=== PATIENT | male | born 1970 | race Caucasian/White ===

== ENCOUNTER 2016-07-28 15:03 | Emergency (ER) | payer OTHER ==
[~2016-07-28] VITALS: Ht 182.9 cm; Wt 86.0 kg
[2016-07-28 15:05] VITALS: BP 115/112; PULSE 88; RESP 14; TEMP 97.7; O2SAT 99
--- NOTE | 2016-07-28 15:42 | PD ---
HPI Chief Complaint: Pain: Acute or Chronic Time Seen by Provider: 15:35 Travel History International Travel<30 days: No Contact w/Intl Traveler<30days: No Traveled to known affect area: No History of Present Illness HPI 45-year-old male presents for evaluation of left calf pain. He reports that he had a little bit of pain in his left calf 5 days ago but went away. He reports that yesterday he drove here from [facility] and last night developed pain in the left calf again. The pain is a cramping pain which is constant but worse with movement or palpation. Denies chest pain or shortness of breath. He reports a history of gout. He has no other complaints. FOR[facility]LY [facility] Past Medical History Gout: Yes Social History Alcohol Use: Yes Tobacco Use: No Substance Use: No Allergies-Medications (Allergen,Severity, Reaction): Coded Allergies: No Known Allergies (Unverified , 07/28/16) Reported Meds & Prescriptions Reported Meds & Active Scripts Active Reported Colchicine 0.6 Mg Cap 0.6 Mg PO DAILY Probenecid 500 Mg Tab 500 Mg PO DAILY Ranitidine (Ranitidine HCl) 300 Mg Tab 300 Mg PO HS Omeprazole 20 Mg Tab 20 Mg PO DAILY Review of Systems Except as stated in HPI: all other systems reviewed are Neg Physical Exam Narrative GENERAL: Well-developed well-nourished male in no acute distress SKIN: Warm and dry. HEAD: Atraumatic. Normocephalic. EYES: Pupils equal and round. No scleral icterus. No injection or drainage. ENT: No nasal bleeding or discharge. Mucous membranes pink and moist. NECK: Trachea midline. No JVD. CARDIOVASCULAR: Regular rate and rhythm. No murmur appreciated. RESPIRATORY: No accessory muscle use. Clear to auscultation. Breath sounds equal bilaterally. GASTROINTESTINAL: Abdomen soft, non-tender, nondistended. MUSCULOSKELETAL: No obvious deformities. Tender to palpation left calf musculature. There is no lower extremity edema. 2+ dorsalis pedis and posterior tibial pulses. NEUROLOGICAL: Awake and alert. No obvious cranial nerve deficits. Motor grossly within normal limits. Normal speech. Data Data Last Documented VS Vital Signs Date Time Temp Pulse Resp B/P Pulse Ox O2 Delivery O2 Flow Rate FiO2 07/28/16 15:05 97.7 88 14 115/112 99 Room Air Orders Complete Blood Count With Diff (07/28/16 15:45) Basic Metabolic Panel (Bmp) (07/28/16 15:45) Us Leg Venous Doppler (07/28/16 15:45) Ketorolac Inj (Toradol Inj) (07/28/16 15:45) Tibia/Fibula (Ap/Lat) (07/28/16 ) Labs Laboratory Tests Test 07/28/16 16:00 White Blood Count 9.7 TH/MM3 Red Blood Count 4.70 MIL/MM3 Hemoglobin 14.3 GM/DL Hematocrit 41.1 % Mean Corpuscular Volume 87.3 FL Mean Corpuscular Hemoglobin 30.5 PG Mean Corpuscular Hemoglobin 34.9 % Concent Red Cell Distribution Width 13.6 % Platelet Count 236 TH/MM3 Mean Platelet Volume 8.5 FL Neutrophils (%) (Auto) 71.3 % Lymphocytes (%) (Auto) 17.8 % Monocytes (%) (Auto) 8.7 % Eosinophils (%) (Auto) 1.4 % Basophils (%) (Auto) 0.8 % Neutrophils # (Auto) 6.9 TH/MM3 Lymphocytes # (Auto) 1.7 TH/MM3 Monocytes # (Auto) 0.8 TH/MM3 Eosinophils # (Auto) 0.1 TH/MM3 Basophils # (Auto) 0.1 TH/MM3 CBC Comment DIFF FINAL Differential Comment Sodium Level 137 MEQ/L Potassium Level 3.7 MEQ/L Chloride Level 99 MEQ/L Carbon Dioxide Level 26.9 MEQ/L Anion Gap 11 MEQ/L Blood Urea Nitrogen 10 MG/DL Creatinine 1.14 MG/DL Estimat Glomerular Filtration 69 ML/MIN Rate Random Glucose 88 MG/DL Calcium Level 9.1 MG/DL [facility] Medical Decision Making Medical Screen Exam Complete: Yes Emergency Medical Condition: Yes Medical Record Reviewed: Yes Interpretation(s) Ultrasound negative Blood work unremarkable Differential Diagnosis Muscle spasm, cramping, DVT Narrative Course 45-year-old male who developed left calf pain after a long car ride yesterday from [facility]. He does endorse a little bit of pain in his left calf 5 days ago but that resolved. Doppler ultrasound, CBC and BMP have been ordered. He'll be given Toradol. X-ray imaging reveals no acute abnormalities, chronic changes in the distal fibula likely from prior injury, suspected enchondroma in the distal medial aspect of the fibula. The patient was reassured. Stable for discharge. Diagnosis Primary Impression: Left leg pain Additional Instructions: Medication as needed. Follow-up with primary care physician on an as-needed basis and return for any acutely new or worsening symptoms. Med/Other Pt SpecificInfo: Prescription(s) given Scripts Naproxen 500 Mg [id number] Mg PO BID 7 Days Ref 0 Prov:Shola Lopez MD 07/28/16 Disposition: 01 DISCHARGE HOME Condition: Stable Domo Dinh Jul 28, 2016 15:42
[2016-07-28] MEDS ORDERED: KETOROLAC TROMETHAMINE 30 MG/ML (IVP) VIAL IV PUSH ONE (15:45)
[2016-07-28] MEDS ORDERED: COLC1CAP3 PO (15:56)
[2016-07-28] MEDS ORDERED: PROB500T8 PO (15:56)
[2016-07-28] MEDS ORDERED: OMEP20TA PO (15:56)
[2016-07-28] MEDS ORDERED: RANI300T PO (15:56)
[2016-07-28 16:13] LABS: AUTOMATED NEUTROPHIL # 6.9 TH/MM3 (1.8-7.7); BASOPHIL # 0.1 TH/MM3 (0-0.2); BASOPHIL % 0.8 % (0.0-2.0); EOSINOPHIL # 0.1 TH/MM3 (0-0.4); EOSINOPHIL % 1.4 % (0.0-4.0); HEMATOCRIT 41.1 % (39.0-51.0); HEMO FLAGS DIFF FINAL; LYMPH % 17.8 % (9.0-44.0); LYMPHOCYTE # 1.7 TH/MM3 (1.0-4.8); MEAN CELL VOLUME 87.3 FL (80.0-100.0); MEAN CORPUSCULAR HEMOGLOBIN 30.5 PG (27.0-34.0); MEAN CORPUSCULAR HGB CONC 34.9 % (32.0-36.0); MONO % 8.7 % (0.0-8.0); NEUT % 71.3 % (16.0-70.0); PLATELET COUNT 236 TH/MM3 (150-450); RED CELL DISTRIBUTION WIDTH 13.6 % (11.6-17.2); WHITE BLOOD COUNT 9.7 TH/MM3 (4.0-11.0)
[2016-07-28 16:31] LABS: BICARBONATE 26.9 MEQ/L (21.0-32.0); POTASSIUM 3.7 MEQ/L (3.5-5.1)
--- NOTE | 2016-07-28 16:40 | PD ---
Data Data Last Documented VS Vital Signs Date Time Temp Pulse Resp B/P Pulse Ox O2 Delivery O2 Flow Rate FiO2 07/28/16 15:05 97.7 88 14 115/112 99 Room Air Orders Complete Blood Count With Diff (07/28/16 15:45) Basic Metabolic Panel (Bmp) (07/28/16 15:45) Us Leg Venous Doppler (07/28/16 15:45) Ketorolac Inj (Toradol Inj) (07/28/16 15:45) Labs Laboratory Tests Test 07/28/16 16:00 White Blood Count 9.7 TH/MM3 Red Blood Count 4.70 MIL/MM3 Hemoglobin 14.3 GM/DL Hematocrit 41.1 % Mean Corpuscular Volume 87.3 FL Mean Corpuscular Hemoglobin 30.5 PG Mean Corpuscular Hemoglobin 34.9 % Concent Red Cell Distribution Width 13.6 % Platelet Count 236 TH/MM3 Mean Platelet Volume 8.5 FL Neutrophils (%) (Auto) 71.3 % Lymphocytes (%) (Auto) 17.8 % Monocytes (%) (Auto) 8.7 % Eosinophils (%) (Auto) 1.4 % Basophils (%) (Auto) 0.8 % Neutrophils # (Auto) 6.9 TH/MM3 Lymphocytes # (Auto) 1.7 TH/MM3 Monocytes # (Auto) 0.8 TH/MM3 Eosinophils # (Auto) 0.1 TH/MM3 Basophils # (Auto) 0.1 TH/MM3 CBC Comment DIFF FINAL Differential Comment Sodium Level 137 MEQ/L Potassium Level 3.7 MEQ/L Chloride Level 99 MEQ/L Carbon Dioxide Level 26.9 MEQ/L Anion Gap 11 MEQ/L Blood Urea Nitrogen 10 MG/DL Creatinine 1.14 MG/DL Estimat Glomerular Filtration 69 ML/MIN Rate Random Glucose 88 MG/DL Calcium Level 9.1 MG/DL [facility] Supervised Visit with ADILENE: Yes Narrative Course The history, exam, and medical decision-making in the associated mid-level provider note were completed with my assistance. I reviewed and agree with the findings presented. I attest that I had a [id number] encounter with the patient on the same day, and personally performed and documented my assessment and findings in the medical record. *My assessment and Findings: So 45-year-old man presents emergent part unilateral leg pain and swelling. Symptoms first started couple days ago. He had symptoms after he hit his leg on it truck door a week or so ago. Symptoms are worse when he walks, they were worse after he did this [place]. He had swelling after that. We did an x-ray to look for fibular fracture. We'll get an ultrasound rule out DVT. Likely discharge if negative. Shola Lopez MD Jul 28, 2016 16:40
--- NOTE | 2016-07-28 17:17 | RADRPT ---
EXAM DATE/TIME: 07/28/2016 16:54 [facility] COMPARISON: No previous studies available for comparison. INDICATIONS : Left leg pain. MEDICAL HISTORY : Hypertension. Gout. SURGICAL HISTORY : Left leg/knee surgery. ENCOUNTER: Initial ACUITY: 4 - 6 days PAIN SCORE: 10/10 LOCATION: Left leg. TECHNIQUE: Venous ultrasound of the leg was performed from the inguinal ligament to the proximal calf. Real-yesenia e, color Doppler and spectral tracing, compression and augmentation techniques were used. FINDINGS: There is normal compressibility of the deep venous system from the inguinal region to the proximal ca lf. No echogenic clot is seen in the lumen of the common femoral, femoral, popliteal, and posterior tibial veins. There is a normal response of the venous system to proximal and distal augmentation an d respiration. CONCLUSION: No DVT. Ashish Cruz MD on July 28, 2016 at 17:15 Board Certified Radiologist. This report was verified electronically.
--- NOTE | 2016-07-28 18:28 | RADRPT ---
EXAM DATE/TIME: 07/28/2016 16:52 [facility] COMPARISON: No previous studies available for comparison. INDICATIONS : Left leg pain with no known injury. MEDICAL HISTORY : Previous left ankle fracture. SURGICAL HISTORY : None. ENCOUNTER: Initial ACUITY: 1 day PAIN SCORE: 5/10 LOCATION: Left middle tibia. FINDINGS: An acute fracture is not seen. There is a deformity identified at the distal fibula. This includes what appears to be an outgrowth at the distal medial aspect of the fibula eroding into the lateral aspect of the tibia. There is hypertrophic change seen inferior to the lateral malleolus . The knee and ankle joints are normally aligned. CONCLUSION: Suspected chronic change at the distal fibula as described above. This is likely from prior injury. Some superimposed mass such as an enchondroma may also be contributing to the outgrowt h at the distal medial aspect of the fibula. Ashish Cruz MD on July 28, 2016 at 17:09 Board Certified Radiologist. This report was verified electronically.
[2016-07-28] MEDS ORDERED: NAPR500T PO (18:36)
== END 2016-07-28 18:57 | disposition home or self-care (01) ==
LOC: NEPB 15:03
DX: M79.662 Pain in left lower leg (principal); R22.42 Localized swelling, mass and lump, left lower limb; Z87.39 Personal history of other diseases of the musculoskeletal system and connective tissue
CPT/HCPCS: 73590; 80048; 85025; 93971; 96374; 99284; J1885